=== PATIENT | male | born 1985 | race Two or more races ===

== ENCOUNTER 2020-12-10 18:42 | Inpatient (IN) | payer OTHER ==
[~2020-12-10] VITALS: Ht 172.7 cm; Wt 86.2 kg
[2020-12-11] MEDS ORDERED: PERCOCET 5-3251 EACH PO (20:02)
== END 2020-12-12 08:10 | disposition home or self-care (01) | DRG 395 ==
LOC: ER 18:42 → EDSEX 18:55 → ER 18:55 → EDBD 18:55 → SURH 12-11 08:19
PROVIDERS: ADMIT Surgery; ATTEND Surgery
PROC: 0D9Q7ZX Drainage of Anus, Via Natural or Artificial Opening, Diagnostic (ICD-10-PCS; principal; 2020-12-11 13:00)
DX: K61.2 Anorectal abscess (principal); Z20.822 Contact with and (suspected) exposure to COVID-19